=== PATIENT | male | born 1970 | race African-American/Black ===

== ENCOUNTER 2020-12-06 08:44 | Outpatient (CLI) | payer OTHER, SELFPAY ==
--- NOTE | ~2020-12-06 | MR_ITS ---
EXAMINATION: MR shoulder LT wo con DATE: 12/06/2020 09:34 INDICATION: Left shoulder pain TECHNIQUE: Magnetic resonance imaging (MRI) of the left shoulder was performed without intravenous co ntrast. Sequences included axial PD-weighted FS FSE, coronal oblique PD-weighted FS FSE, coronal obli que T2-weighted FS FSE, sagittal PD-weighted FS FSE, and sagittal T1-weighted SE. COMPARISON: None. FINDINGS: Coracoacromial arch: The acromion undersurface is curved in morphology (type II). The coracoacromial ligament is normal. M ild acromioclavicular osteoarthritis. Rotator cuff: Mild supraspinatus and subscapularis tendinopathy without discrete tear. The infraspinatus and teres minor tendons are normal. Normal rotator cuff muscle bulk and signal. Biceps tendon, glenoid labrum and glenohumeral cartilage: Tendinopathy and longitudinal split tearing of the long head biceps tendon. Delaminating tear at the chondral labral junction at the 8:30 position of the posterior glenoid labrum. Glenohumeral cartilage is normal. Fluid: There is increased fluid in the long head biceps tendon sheath which is disproportionate to the small glenohumeral joint effusion consistent with mild bicipital tenosynovitis. No loose osteochondral bod ies. Mild increased fluid signal in the subacromial/subdeltoid bursa consistent with minimal bursitis . Bones: Mild marrow edema at the lesser tuberosity and along the intertubercular groove. Otherwise normal mar row signal with no fracture or pathologic marrow replacing process. IMPRESSION: 1. Bicipital tenosynovitis with tendinopathy and longitudinal split tearing of the long head biceps t endon. 2. Mild supraspinatus and subscapularis tendinopathy without discrete tear. 3. Small delaminating tear at the chondral labral junction at the 8:30 position of the posterior sharee oid labrum. 4. Minimal subacromial/subdeltoid bursitis. Reviewed, dictated and finalized at location B. IMPRESSION: 1. Bicipital tenosynovitis with tendinopathy and longitudinal split tearing of the long head biceps tendon. 2. Mild supraspinatus and subscapularis tendinopathy without discrete tear. 3. Small delaminating tear at the chondral labral junction at the 8:30 position of the posterior glenoid labrum. 4. Minimal subacromial/subdeltoid bursitis.
== END 2020-12-06 08:45 | disposition home or self-care (01) ==
PROVIDERS: PCP Internal Medicine; Visit Provider Physician Assistant Surgical
DX: M75.22 Bicipital tendinitis, left shoulder (principal); M75.52 Bursitis of left shoulder
CPT/HCPCS: 73221